=== PATIENT | male | born 1970 | race Asian ===

== ENCOUNTER 2016-09-16 15:37 | Emergency (ER) | payer SELFPAY ==
[2016-09-16 18:42] VITALS: BP 135/88
[2016-09-16] MEDS ORDERED: FLUORESCEIN SOD 1 MG TEST STRIP LEFTEYE ONE (19:45)
[2016-09-16] MEDS ORDERED: TETRACAINE HCL 0.5% OPTH(EYE) SOLN 4ML RIGHTEYE ONE (19:45)
[2016-09-16] MEDS ORDERED: FLUORESCEIN SOD 1 MG TEST STRIP RIGHTEYE ONE (19:45)
== END 2016-09-16 20:30 | disposition home or self-care (01) ==
LOC: ER 15:45
DX: H11.421 Conjunctival edema, right eye (principal)